=== PATIENT | male | born 1985 ===

== ENCOUNTER 2022-10-19 13:46 | Inpatient (IN) | payer OTHER ==
[~2022-10-19] VITALS: Ht 182.9 cm; Wt 88.0 kg
[2022-10-19] VITALS (94 sets, daily range): BP systolic 76–145; BP diastolic 24–86
[2022-10-19 14:39] LABS: BASO% 0.2 % (0-3); EOS% 0.1 % (0-8); HEMATOCRIT 45.5 % (39.0-50.0); HEMOGLOBIN 15.2 g/dl (14.0-18.0); LYMPH% 4.6 % (15-41); MEAN CELL VOLUME 85.2 fL CALC (80.0-100.0); MEAN CORPUSCULAR HGB 28.5 pG CALC (26.0-32.0); MEAN CORPUSCULAR HGB CONC 33.4 g/dL CAL (32.0-36.0); MONO% 8.1 % (2-13); NEUT# 10.73 thou/uL (1.82-7.42); PLATELET COUNT 207 thou/uL (130-400); RED BLOOD COUNT 5.34 mill/uL (4.70-6.10); RED CELL DISTRI WIDTH 14.4 % (11.5-15.5)
[2022-10-19 14:58] LABS: GFR FOR AFR.AMER. 18 ML/MIN (>=60 (CALC)); GFR OTHER RACES 15 ML/MIN (>=60 (CALC))
[2022-10-19 15:12] LABS: ALBUMIN 3.8 g/dL (3.2-5.0); ALKALINE PHOSPHATASE 134 u/l (38-126); BILIRUBIN, TOTAL 0.8 mg/dL (0.0-1.4); BUN 61 mg/dL (9-20); BUN/CREATININE RATIO 14 (12-20 (CALC)); CHLORIDE 99 mmol/l (95-108); CREATININE 4.4 mg/dL (0.7-1.3); ETHYL ALCOHOL 0 mg/dl (0-30); LIPASE 146 u/l (23-300); MAGNESIUM 3.7 mg/dL (1.6-2.3); SGOT/AST 22 u/l (17-59); SODIUM 134 mmol/l (137-146); TOTAL PROTEIN 7.3 g/dL (6.3-8.2)
[2022-10-19 15:13] LABS: ANION GAP 34 (6-22 (CALC)); CARBON DIOXIDE 7 mmol/l (22-30); POTASSIUM 5.7 mmol/l (3.5-5.1)
[2022-10-19 15:16] LABS: URINE BILIRUBIN - DIPSTICK SMALL (NEGATIVE); URINE BLOOD DIPSTICK MODERATE (NEGATIVE); URINE COLOR YELLOW; URINE GLUCOSE - DIPSTICK >=1000 mg/dL (NEGATIVE); URINE KETONE 40 mg/dL (NEGATIVE); URINE LEUK ESTERASE NEGATIVE (NEGATIVE); URINE NITRITE - DIPSTICK NEGATIVE (Negative); URINE PROTEIN - DIPSTICK 30 mg/dL (NEG-TRACE); URINE SPECIFIC GRAVITY 1.025; URINE UROBILINOGEN - DIPSTICK 0.2 E.U./dL (0.2)
[2022-10-19 15:22] LABS: TSH, 3RD GENERATION 0.53 uIU/mL (0.47 - 4.68)
[2022-10-19 15:24] LABS: URINE WBC 0-2 WBC/hpf (0-5)
[2022-10-19] MEDS ORDERED: NOVOLIN R100 UNIT/M (17:07)
[2022-10-19] MEDS ORDERED: NOVOLIN 70/30 INNLT SC (17:08)
[2022-10-19] MEDS ORDERED: METFORMIN HCL1000 MG PO (17:09)
[2022-10-19 17:48] LABS: BILIRUBIN, TOTAL 0.6 mg/dL (0.0-1.4); CREATININE 3.7 mg/dL (0.7-1.3); POTASSIUM 4.9 mmol/l (3.5-5.1)
[2022-10-19 18:04] LABS: ALBUMIN 2.9 g/dL (3.2-5.0); TOTAL PROTEIN 5.7 g/dL (6.3-8.2)
[2022-10-19 20:59] LABS: CREATININE 3.5 mg/dL (0.7-1.3); POTASSIUM 4.4 mmol/l (3.5-5.1)
[2022-10-20] VITALS (25 sets, daily range): BP systolic 94–149; BP diastolic 59–87
[2022-10-20 01:04] LABS: HEMOGLOBIN 13.5 g/dl (14.0-18.0)
[2022-10-20 01:05] LABS: HEMATOCRIT 38.6 % (39.0-50.0)
[2022-10-20 01:21] LABS: CREATININE 3.3 mg/dL (0.7-1.3)
[2022-10-20 05:53] LABS: HEMATOCRIT 38.7 % (39.0-50.0); HEMOGLOBIN 13.7 g/dl (14.0-18.0); MEAN CELL VOLUME 81.8 fL CALC (80.0-100.0); MEAN CORPUSCULAR HGB CONC 35.4 g/dL CAL (32.0-36.0); RED BLOOD COUNT 4.73 mill/uL (4.70-6.10); RED CELL DISTRI WIDTH 13.9 % (11.5-15.5)
[2022-10-20 06:31] LABS: ALBUMIN 2.8 g/dL (3.2-5.0); BILIRUBIN, TOTAL 0.4 mg/dL (0.0-1.4); CREATININE 3.4 mg/dL (0.7-1.3); POTASSIUM 4.1 mmol/l (3.5-5.1)
[2022-10-20 06:42] LABS: MAGNESIUM 2.6 mg/dL (1.6-2.3)
[2022-10-20 08:50] LABS: CREATININE 3.5 mg/dL (0.7-1.3); POTASSIUM 4.3 mmol/l (3.5-5.1)
[2022-10-20 12:21] LABS: HEMATOCRIT 38.6 % (39.0-50.0); HEMOGLOBIN 13.9 g/dl (14.0-18.0)
[2022-10-20 16:37] LABS: ALBUMIN 2.6 g/dL (3.2-5.0); CREATININE 3.5 mg/dL (0.7-1.3); TOTAL PROTEIN 5.5 g/dL (6.3-8.2)
[2022-10-20 16:39] LABS: BILIRUBIN, TOTAL 0.6 mg/dL (0.0-1.4)
[2022-10-20 18:38] LABS: HEMATOCRIT 39.3 % (39.0-50.0); HEMOGLOBIN 14.4 g/dl (14.0-18.0)
[2022-10-20 20:23] LABS: ALBUMIN 2.5 g/dL (3.2-5.0); BILIRUBIN, TOTAL 0.6 mg/dL (0.0-1.4); CREATININE 3.4 mg/dL (0.7-1.3); POTASSIUM 3.8 mmol/l (3.5-5.1); TOTAL PROTEIN 5.6 g/dL (6.3-8.2)
[2022-10-21] VITALS (71 sets, daily range): BP systolic 94–148; BP diastolic 64–93
[2022-10-21 05:57] LABS: BASO% 0.1 % (0-3); EOS% 0.3 % (0-8); HEMATOCRIT 39.6 % (39.0-50.0); HEMOGLOBIN 14.4 g/dl (14.0-18.0); LYMPH% 7.3 % (15-41); MEAN CELL VOLUME 82.2 fL CALC (80.0-100.0); MEAN CORPUSCULAR HGB 29.9 pG CALC (26.0-32.0); MEAN CORPUSCULAR HGB CONC 36.4 g/dL CAL (32.0-36.0); MONO% 4.2 % (2-13); NEUT# 9.03 thou/uL (1.82-7.42); NEUT% 85.1 % (42-76); RED BLOOD COUNT 4.82 mill/uL (4.70-6.10); RED CELL DISTRI WIDTH 14.3 % (11.5-15.5)
[2022-10-21 06:07] LABS: ALBUMIN 2.4 g/dL (3.2-5.0); CREATININE 3.5 mg/dL (0.7-1.3); MAGNESIUM 2.4 mg/dL (1.6-2.3); TOTAL PROTEIN 5.5 g/dL (6.3-8.2)
[2022-10-21 06:25] LABS: POTASSIUM 4.8 mmol/l (3.5-5.1)
[2022-10-22] VITALS (62 sets, daily range): BP systolic 115–137; BP diastolic 76–96
[2022-10-22 04:19] LABS: MEAN CORPUSCULAR HGB 28.9 pG CALC (26.0-32.0); MEAN CORPUSCULAR HGB CONC 36.1 g/dL CAL (32.0-36.0); RED BLOOD COUNT 4.5 mill/uL (4.70-6.10); RED CELL DISTRI WIDTH 13.7 % (11.5-15.5)
[2022-10-22 06:28] LABS: ALBUMIN 2.2 g/dL (3.2-5.0); CREATININE 3.4 mg/dL (0.7-1.3); MAGNESIUM 2.7 mg/dL (1.6-2.3)
[2022-10-22 06:42] LABS: POTASSIUM 3.6 mmol/l (3.5-5.1)
[2022-10-22 18:38] LABS: ALBUMIN 2.2 g/dL (3.2-5.0); BILIRUBIN, TOTAL 0.6 mg/dL (0.0-1.4); POTASSIUM 3.7 mmol/l (3.5-5.1); TOTAL PROTEIN 5.3 g/dL (6.3-8.2)
[2022-10-23] VITALS (23 sets, daily range): BP systolic 92–137; BP diastolic 63–94
[2022-10-23 05:26] LABS: BASO% 0.1 % (0-3); EOS% 1.1 % (0-8); HEMATOCRIT 35.1 % (39.0-50.0); HEMOGLOBIN 13.1 g/dl (14.0-18.0); LYMPH% 8.8 % (15-41); MEAN CELL VOLUME 78.2 fL CALC (80.0-100.0); MEAN CORPUSCULAR HGB 29.2 pG CALC (26.0-32.0); MEAN CORPUSCULAR HGB CONC 37.3 g/dL CAL (32.0-36.0); MONO% 5.8 % (2-13); NEUT# 8.72 thou/uL (1.82-7.42); NEUT% 70.1 % (42-76); RED BLOOD COUNT 4.49 mill/uL (4.70-6.10); RED CELL DISTRI WIDTH 13.2 % (11.5-15.5)
[2022-10-23 05:33] LABS: IMMATURE GRANULOCYTES 14.1 % (0.0-5.0)
[2022-10-23 05:34] LABS: ALBUMIN 2.2 g/dL (3.2-5.0); CREATININE 2.8 mg/dL (0.7-1.3); MAGNESIUM 2.7 mg/dL (1.6-2.3)
[2022-10-23 05:44] LABS: POTASSIUM 3.2 mmol/l (3.5-5.1)
[2022-10-24] VITALS (24 sets, daily range): BP systolic 94–133; BP diastolic 55–88
[2022-10-24 06:08] LABS: EOS% 1.3 % (0-8); HEMATOCRIT 33.1 % (39.0-50.0); HEMOGLOBIN 12.3 g/dl (14.0-18.0); LYMPH% 10.4 % (15-41); MEAN CELL VOLUME 78.1 fL CALC (80.0-100.0); MEAN CORPUSCULAR HGB CONC 37.2 g/dL CAL (32.0-36.0); NEUT# 9.21 thou/uL (1.82-7.42); NEUT% 68.6 % (42-76); RED BLOOD COUNT 4.24 mill/uL (4.70-6.10); RED CELL DISTRI WIDTH 13.6 % (11.5-15.5)
[2022-10-24 06:19] LABS: IMMATURE GRANULOCYTES 10.7 % (0.0-5.0)
[2022-10-24 06:46] LABS: CREATININE 2.5 mg/dL (0.7-1.3); MAGNESIUM 2.2 mg/dL (1.6-2.3); POTASSIUM 3.6 mmol/l (3.5-5.1); TOTAL PROTEIN 4.7 g/dL (6.3-8.2)
[2022-10-24 06:54] LABS: BILIRUBIN, TOTAL 0.2 mg/dL (0.0-1.4)
[2022-10-25] VITALS (25 sets, daily range): BP systolic 108–138; BP diastolic 59–96
[2022-10-25 06:19] LABS: BASO% 0.1 % (0-3); EOS% 0.8 % (0-8); HEMATOCRIT 34.6 % (39.0-50.0); HEMOGLOBIN 12.3 g/dl (14.0-18.0); MEAN CELL VOLUME 79.5 fL CALC (80.0-100.0); MEAN CORPUSCULAR HGB 28.3 pG CALC (26.0-32.0); MEAN CORPUSCULAR HGB CONC 35.5 g/dL CAL (32.0-36.0); MONO% 8.5 % (2-13); NEUT# 10.51 thou/uL (1.82-7.42); NEUT% 70.1 % (42-76); RED BLOOD COUNT 4.35 mill/uL (4.70-6.10)
[2022-10-25 06:23] LABS: IMMATURE GRANULOCYTES 8.5 % (0.0-5.0)
[2022-10-25 06:47] LABS: ALBUMIN 2.4 g/dL (3.2-5.0); BILIRUBIN, TOTAL 0.2 mg/dL (0.0-1.4); CREATININE 2.5 mg/dL (0.7-1.3); MAGNESIUM 2.3 mg/dL (1.6-2.3); POTASSIUM 3.2 mmol/l (3.5-5.1)
[2022-10-25 07:05] LABS: TOTAL PROTEIN 5.8 g/dL (6.3-8.2)
[2022-10-26] VITALS (17 sets, daily range): BP systolic 109–139; BP diastolic 65–94
[2022-10-26 06:29] LABS: HEMATOCRIT 32.2 % (39.0-50.0); HEMOGLOBIN 11.6 g/dl (14.0-18.0); MEAN CELL VOLUME 80.7 fL CALC (80.0-100.0); MEAN CORPUSCULAR HGB 29.1 pG CALC (26.0-32.0); RED BLOOD COUNT 3.99 mill/uL (4.70-6.10); RED CELL DISTRI WIDTH 14.2 % (11.5-15.5)
[2022-10-26 06:38] LABS: ALBUMIN 2.3 g/dL (3.2-5.0); BILIRUBIN, TOTAL 0.2 mg/dL (0.0-1.4); CREATININE 2.2 mg/dL (0.7-1.3); POTASSIUM 3.3 mmol/l (3.5-5.1); TOTAL PROTEIN 5.6 g/dL (6.3-8.2)
[2022-10-27] VITALS (7 sets, daily range): BP systolic 121–145; BP diastolic 77–95
[2022-10-27 05:58] LABS: BASO% 0.3 % (0-3); EOS% 0.5 % (0-8); HEMATOCRIT 31.2 % (39.0-50.0); IMMATURE GRANULOCYTES 4.9 % (0.0-5.0); LYMPH% 13.3 % (15-41); MEAN CELL VOLUME 81.3 fL CALC (80.0-100.0); MEAN CORPUSCULAR HGB 28.6 pG CALC (26.0-32.0); MEAN CORPUSCULAR HGB CONC 35.3 g/dL CAL (32.0-36.0); MONO% 7.3 % (2-13); NEUT# 8.52 thou/uL (1.82-7.42); NEUT% 73.7 % (42-76); RED BLOOD COUNT 3.84 mill/uL (4.70-6.10); RED CELL DISTRI WIDTH 14.2 % (11.5-15.5)
[2022-10-27 06:22] LABS: ALBUMIN 2.3 g/dL (3.2-5.0); BILIRUBIN, TOTAL 0.2 mg/dL (0.0-1.4); CREATININE 2.3 mg/dL (0.7-1.3); MAGNESIUM 1.9 mg/dL (1.6-2.3); POTASSIUM 3.8 mmol/l (3.5-5.1); TOTAL PROTEIN 5.5 g/dL (6.3-8.2)
[2022-10-27 15:54] LABS: URINE BILIRUBIN - DIPSTICK NEGATIVE (NEGATIVE); URINE BLOOD DIPSTICK MODERATE (NEGATIVE); URINE CLARITY CLEAR; URINE COLOR YELLOW; URINE GLUCOSE - DIPSTICK >=1000 mg/dL (NEGATIVE); URINE KETONE NEGATIVE (NEGATIVE); URINE LEUK ESTERASE NEGATIVE (Negative); URINE NITRITE - DIPSTICK NEGATIVE (Negative); URINE PROTEIN - DIPSTICK TRACE mg/dL (NEG-TRACE); URINE UROBILINOGEN - DIPSTICK 0.2 E.U./dL (0.2)
[2022-10-27 16:30] LABS: URINE SQUAMOUS EPITHELIAL CELL FEW EPI/hpf (0-FEW)
[2022-10-28] VITALS (8 sets, daily range): BP systolic 121–151; BP diastolic 80–130
[2022-10-28 04:37] LABS: BASO% 0.4 % (0-3); EOS% 0.5 % (0-8); HEMATOCRIT 30.6 % (39.0-50.0); HEMOGLOBIN 10.6 g/dl (14.0-18.0); IMMATURE GRANULOCYTES 2.6 % (0.0-5.0); MEAN CELL VOLUME 82.7 fL CALC (80.0-100.0); MEAN CORPUSCULAR HGB 28.6 pG CALC (26.0-32.0); MEAN CORPUSCULAR HGB CONC 34.6 g/dL CAL (32.0-36.0); MONO% 7.2 % (2-13); NEUT# 8.76 thou/uL (1.82-7.42); NEUT% 77.3 % (42-76); RED BLOOD COUNT 3.7 mill/uL (4.70-6.10); RED CELL DISTRI WIDTH 14.3 % (11.5-15.5)
[2022-10-28 05:00] LABS: CREATININE 2.1 mg/dL (0.7-1.3); POTASSIUM 3.7 mmol/l (3.5-5.1); TOTAL PROTEIN 5.2 g/dL (6.3-8.2)
[2022-10-28 05:06] LABS: BILIRUBIN, TOTAL 0.1 mg/dL (0.0-1.4)
[2022-10-28] MEDS ORDERED: ROCEPHIN 1 GM1 GM IV (09:56)
== END 2022-10-28 16:50 | DRG 871 ==
LOC: ED 13:46 → ED-I 18:30 → ED 18:50 → MS2 18:51 → ICU 18:51 → MS2 10-26 16:50
PROVIDERS: Family Medicine; Internal Medicine; Internal Medicine Nephrology; Nurse Practitioner Family; ADMIT Internal Medicine; ATTEND Internal Medicine
PROC: 02HV33Z Insertion of Infusion Device into Superior Vena Cava, Percutaneous Approach (ICD-10-PCS; principal; 2022-10-19)
PROC: 5A1945Z Respiratory Ventilation, 24-96 Consecutive Hours (ICD-10-PCS; 2022-10-19)
PROC: 0T9B70Z Drainage of Bladder with Drainage Device, Via Natural or Artificial Opening (ICD-10-PCS; 2022-10-19)
PROC: 3E043XZ Introduction of Vasopressor into Central Vein, Percutaneous Approach (ICD-10-PCS; 2022-10-19)
PROC: 02HV33Z Insertion of Infusion Device into Superior Vena Cava, Percutaneous Approach (ICD-10-PCS; 2022-10-28)
PROC: B518ZZA Fluoroscopy of Superior Vena Cava, Guidance (ICD-10-PCS; 2022-10-28)
PROC: 0DBH8ZX Excision of Cecum, Via Natural or Artificial Opening Endoscopic, Diagnostic (ICD-10-PCS; 2022-10-28)
PROC: 0DJ08ZZ Inspection of Upper Intestinal Tract, Via Natural or Artificial Opening Endoscopic (ICD-10-PCS; 2022-10-28)
DX: A40.8 Other streptococcal sepsis (principal); E11.10 Type 2 diabetes mellitus with ketoacidosis without coma; J18.9 Pneumonia, unspecified organism; J96.01 Acute respiratory failure with hypoxia; N17.0 Acute kidney failure with tubular necrosis; R65.21 Severe sepsis with septic shock; E87.0 Hyperosmolality and hypernatremia; K92.2 Gastrointestinal hemorrhage, unspecified; K50.10 Crohn's disease of large intestine without complications; E83.39 Other disorders of phosphorus metabolism; E87.6 Hypokalemia; I95.9 Hypotension, unspecified; E86.9 Volume depletion, unspecified; D64.9 Anemia, unspecified; K64.8 Other hemorrhoids; E11.22 Type 2 diabetes mellitus with diabetic chronic kidney disease; N18.9 Chronic kidney disease, unspecified; Z79.4 Long term (current) use of insulin; Z79.84 Long term (current) use of oral hypoglycemic drugs; Z20.822 Contact with and (suspected) exposure to COVID-19
CPT/HCPCS: J0692; S0164